=== PATIENT | female | born 1965 | race Two or more races ===

== ENCOUNTER 2017-01-22 08:48 | Day surgery (SDC) | payer OTHER ==
[~2017-01-22] VITALS: Ht 157.5 cm; Wt 56.8 kg
[2017-01-22 09:24] VITALS: Ht 157.5 cm; Wt 56.8 kg
[2017-01-22 09:50] VITALS: BP 121/59; PULSE 52; RESP 21
[2017-01-22] MEDS ORDERED: FENTAnyl 50 MCG/ML VIAL ONE (10:28)
[2017-01-22] MEDS ORDERED: MIDAZOLAM 1 MG/ML 2 ML INJ ONE ×2 (10:28→10:29)
[2017-01-22 10:59] VITALS: BP 104/60; PULSE 51; RESP 20
--- NOTE | 2017-01-22 11:40 | GILP ---
DATE OF PROCEDURE: NAME OF PROCEDURE: Colonoscopy. SURGEON: Saba Aggarwal MD PREOPERATIVE DIAGNOSES: Rectal bleeding. POSTOPERATIVE DIAGNOSES 1. Colonoscopy all the way to the cecum. 2. Internal hemorrhoids. 3. No colon neoplasm was identified. INDICATION FOR THE PROCEDURE: Ms. Tyra Egan is a 51-year-old female patient who had history of re ctal bleeding. She never had screening colonoscopy. The procedure and possible complications are well explained to the patient, she understood and conse nted to the procedure. DESCRIPTION OF PROCEDURE: Under the influence of fentanyl and Versed, the colonoscope was carefully introduced in the rectum and under direct vision, it was advanced all the way to the cecum. FINDINGS: The patient had internal hemorrhoids. No colon neoplasm was identified. She tolerated the procedure very well and there was no complication from the procedure. At the end of the procedures, she was awake with stable vital signs and she was discharged home to the care of her family. IMPRESSION: 1. Colonoscopy all the way to the cecum. 2. Internal hemorrhoids. 3. No colon neoplasm was identified. PLAN: Next screening colonoscopy in 10 years. Dictated By: SABA SAHA/OWEN Conf#: [id number] DID#: [id number]
== END 2017-01-22 12:03 | disposition home or self-care (01) ==
LOC: GIL 08:48
PROVIDERS: ATTEND Internal Medicine Gastroenterology
DX: K64.8 Other hemorrhoids (principal)
CPT/HCPCS: 45378; 84703; J2250; J3010; Z7610